=== PATIENT | male | born 1980 | race Caucasian/White ===

== ENCOUNTER 2017-01-07 15:25 | Emergency (ER) | payer SELFPAY ==
[~2017-01-07] VITALS: Ht 188 cm; Wt 100.0 kg
[2017-01-07 15:26] VITALS: BP 133/67; PULSE 82; RESP 20; TEMP 98.7; O2SAT 95
--- NOTE | 2017-01-07 15:49 | PD ---
HPI Chief Complaint: Eye Problems/Injury Time Seen by Provider: 15:48 Travel History International Travel<30 days: No Contact w/Intl Traveler<30days: No Traveled to known affect area: No History of Present Illness HPI 36-year-old male presents to the emergency department for evaluation of right eye redness and irritation. Patient states that he took his contact out yesterday and it was extremely painful. When he woke up this morning the eye was red and crusting in his eyelashes. Patient denies any fever or chills. No known trauma. No visual changes. He is up-to-date on his tetanus vaccination. [facility] Social History Tobacco Use: Yes Allergies-Medications Reported Meds & Prescriptions Reported Meds & Active Scripts Active Ocuflox Opth Drops (Ofloxacin Opth Drops) 0.3 % Drops 1 Drop EACH EYE QID Review of Systems Except as stated in HPI: all other systems reviewed are Neg Physical Exam Narrative GENERAL: Well-nourished, well-developed male patient, ambulatory no acute distress SKIN: Focused skin assessment warm/dry. HEAD: Normocephalic. No tenderness elicited palpation of the facial structures. EYES: No scleral icterus. Injection of the right sclera. No foreign body identified. No increased uptake under fluorescein examination. EOMI. PERRLA NECK: Supple, trachea midline. No JVD or lymphadenopathy. CARDIOVASCULAR: Regular rate and rhythm without murmurs, gallops, or rubs. RESPIRATORY: Breath sounds equal bilaterally. No accessory muscle use. Data Data Last Documented VS Vital Signs Date Time Temp Pulse Resp B/P Pulse Ox O2 Delivery O2 Flow Rate FiO2 01/07/17 15:26 98.7 82 20 133/67 95 Room Air MDM Medical Decision Making Medical Screen Exam Complete: Yes Emergency Medical Condition: Yes Medical Record Reviewed: Yes Differential Diagnosis Conjunctivitis versus corneal abrasion versus foreign body Narrative Course 36-year-old male presents to emergency department for evaluation right eye irritation. Physical exam history are consistent with conjunctivitis. Patient was started on ophthalmic drops, calcium care, encouraged follow-up with primary care provider. He agrees to return immediately with any acute worsening symptoms. Diagnosis Primary Impression: Conjunctivitis Qualified Code: H10.31 - Acute conjunctivitis of right eye, unspecified acute conjunctivitis type Referrals: [facility] Primary Care Physician Patient Instructions: Conjunctivitis (ED), General Instructions Additional Instructions: Use drops as directed for at least 7 days Warm compresses to remove crust Cold compresses to alleviate irritation Follow-up with her primary care provider Frequent handwashing to reduce spread of infection Do not wear contacts until infection is completely healed Return immediately with any acute worsening of symptoms Med/Other Pt SpecificInfo: Prescription(s) given Scripts Ofloxacin Opth Drops (Ocuflox Opth Drops)0.3 % Drops1 Drop EACH EYE QID #1 BOTTLE Ref 0 Prov:Myranda Martin 01/07/17 Disposition: 01 DISCHARGE HOME Condition: Stable Myranda Martin Jan 07, 2017 15:48
[2017-01-07] MEDS ORDERED: OCUF0.3D EACH EYE (15:59)
== END 2017-01-07 16:09 | disposition home or self-care (01) ==
LOC: NEPK 15:25
DX: H10.31 Unspecified acute conjunctivitis, right eye (principal); Z72.0 Tobacco use; Z79.899 Other long term (current) drug therapy
CPT/HCPCS: 99283

== ENCOUNTER 2017-02-07 17:10 | Emergency (ER) | payer SELFPAY ==
[~2017-02-07] VITALS: Ht 188 cm; Wt 95.0 kg
[~2017-02-07 17:10] MED LIST: OCUF0.3D EACH EYE
[2017-02-07 17:11] VITALS: BP 130/68; PULSE 81; RESP 14; TEMP 98.4; O2SAT 99
--- NOTE | 2017-02-07 18:11 | PD ---
HPI . right skin infection Chief Complaint: Skin Problem Time Seen by Provider: 18:11 Travel History International Travel<30 days: No Contact w/Intl Traveler<30days: No Traveled to known affect area: No History of Present Illness HPI 36-year-old male here with possible skin infection to his right leg that has been present for several weeks. Patient is requesting antibiotics and pain medications. He says there was some swelling and redness several days ago, however now is improved. He is concerned about a possible infection. He also tells me that it's hurting and he would like something for the pain. Denies any fever or chills. He has no other complaints. PFSH Social History Tobacco Use: Yes Allergies-Medications Reported Meds & Prescriptions Reported Meds & Active Scripts Active Ocuflox Opth Drops (Ofloxacin Opth Drops) 0.3 % Drops 1 Drop EACH EYE QID Review of Systems General / Constitutional: No: Fever Eyes: No: Visual changes HENT: No: Headaches Cardiovascular: No: Chest Pain or Discomfort Respiratory: No: Shortness of Breath Gastrointestinal: No: Abdominal Pain Genitourinary: No: Dysuria Musculoskeletal: No: Pain Skin: Positive Other (skin abrasion ), No Rash Neurologic: No: Weakness Psychiatric: No: Depression Endocrine: No: Polydipsia Hematologic/Lymphatic: No: Easy Bruising Physical Exam Narrative GENERAL: AAO x 3, no acute distress, Well-nourished, well-developed patient. SKIN: Warm and dry. No visible rashes or bruising. right leg with small excoriation on the anterior bautista that is healing without evidence of infection, very mild erythema, no purulence or drainage, HEAD: Normocephalic and atraumatic. EYES: No scleral icterus. No injection or drainage. ENT: No nasal drainage noted. Mucous membranes pink. Airway patent. NECK: Supple, trachea midline. No JVD. CARDIOVASCULAR: Regular rate and rhythm without murmurs, gallops, or rubs. RESPIRATORY: Breath sounds equal bilaterally. No accessory muscle use. No rhonchi or rales. GASTROINTESTINAL: Abdomen soft, non-tender, nondistended. EXTREMITIES: No cyanosis or edema. BACK: No obvious deformity. 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 Data Data Last Documented VS Vital Signs Date Time Temp Pulse Resp B/P Pulse Ox O2 Delivery O2 Flow Rate FiO2 02/07/17 17:11 98.4 81 14 130/68 99 MDM Medical Decision Making Medical Screen Exam Complete: Yes Emergency Medical Condition: No Medical Record Reviewed: Yes Differential Diagnosis skin excoriation, less likely cellulitis, less likely non healing wound Narrative Course A medical screening exam was performed: At the time of evaluation the presenting medical condition was determined not to be of an emergent nature. The patient was given the option of receiving additional care, but declined. Patient was given options for additional community resources from which to obtain care. The Patient Has Been advised to seek medical attention for their presenting complaint. The patient has been advised to return to the ER at any time if an emergent condition develops. Diagnosis Primary Impression: Encounter for medical screening examination Condition: Stable Mag Montiel Feb 07, 2017 18:11
== END 2017-02-07 18:23 | disposition left against medical advice (07) ==
LOC: NEPD 17:10
DX: M79.604 Pain in right leg (principal)
CPT/HCPCS: 99281